=== PATIENT | male | born 1995 | race Hispanic/Latino ===

== ENCOUNTER 2018-03-14 21:37 | Emergency (ER) | payer OTHER ==
[~2018-03-14 21:37] MED LIST: ISOVUE-370 76%-LOCM 1 ML ONE; Iopamidol 370 76% 50 ML VIAL FS ONE
[2018-03-14 21:58] LABS: Bilirubin Small (Negative); Blood, Urine Negative (Negative); Clarity CLOUDY (Clear); Glucose, Urine (Dipstick) Negative (Negative); Leukocyte Negative (Negative); Nitrite Negative (Negative); Protein, Urine (Dipstick) Trace mg/dL (Neg-Trace); Specific Gravity, Urine 1.026 (1.002-1.036)
[2018-03-14 22:18] LABS: #Lymphocytes 1.2 thou/uL (1.20-3.40); #Monocytes 0.7 thou/uL (0.11-0.59); #Neutrophils 11.6 thou/uL (1.40-6.50); %Basophils 0.2 % (0.0-1.0); %Eosinophils 0.1 % (0.0-10.0); %Lymphocytes 8.5 % (28.0-48.0); %Monocytes 5.5 % (0.0-4.0); %Neutrophils 85.7 % (31.0-61.0); Hemoglobin 15.5 g/dL (14.0-18.0); Mean Corpuscular HGB CONC 34.2 g/dL (32.0-36.0); Mean Corpuscular Hemoglobin 31.3 pg (25.0-35.0); Mean Corpuscular Volume 91.3 fL (78.0-98.0); Mean Platelet Volume 7.4 fL (7.4-10.4); Platelet Count 256 thou/uL (130-400); RBC Distribution Width 11.6 % (11.5-14.5); Red Blood Cell (RBC) Count 4.94 mill/uL (4.00-5.20); White Blood Cell (WBC) Count 13.5 thou/uL (4.8-10.8)
[2018-03-14 22:43] LABS: ALT (SGPT) 9 U/L (8-55); AST (SGOT) 15 U/L (5-34); Albumin 4.9 g/dL (3.5-5.0); Alkaline Phosphatase 98 U/L (Less than 750); Anion Gap 14 mmol/L (10-20); BUN (Urea Nitrogen) 15 mg/dL (8.9-20.6); Bilirubin, Total 1.3 mg/dL (0.2-1.2); Calc. Creatinine Clearance 0 mL/min (70-130); Calcium 10.1 mg/dL (7.8-10.44); Carbon Dioxide 27 mmol/L (22-29); Chloride 102 mmol/L (98-107); Estimated GFR-MDRD Greater than 90; Globulin 2.7 g/dL (2.4-3.5); Glucose 116 mg/dL (70-105); Lipase 8 U/L (8-78); Potassium 3.9 mmol/L (3.5-5.1); Protein, Total 7.6 g/dL (6.0-8.3); Sodium 139 mmol/L (136-145)
--- NOTE | 2018-03-15 09:28 | CT ---
PRELIMINARY REPORT/[facility]/EMERGENTY AFTER-HOURS PROCEDURE CT Abdomen and Pelvis With Contrast EXAM DATE/TIME: 03/15/2018 12:20 AM CLINICAL HISTORY: 22 years old, male; Pain; Abdominal pain; Acute; Patient HX: Kedar carr is a 22 yo m with no pmh w ho presents to the ed with C/O 1 day HX of abdominal pain. Pain started this morning, described as sh julio, located in center of abdomen, associated with three episodes of nbnb vomiting. As the day progresses, pain improved slightly and migrated to umbilical area. Describes pain as throb yamile currently. Denies ruq or rlq pain. States he did have chills, but no fever. He was seen at [facility] and giving hyoscyamine. He was afebrile in the clinic. Denies smoking, alcohol, drug use. Denies chest pain, dyspnea, urinary symptoms or testicular pain. TECHNIQUE: Axial computed tomography images of the abdomen and pelvis with intravenous contrast. Coronal reforma tted images were created and reviewed. COMPARISON: No relevant prior studies available. FINDINGS: Lower thorax: No acute findings. ABDOMEN: Liver: No acute findings. No mass. Gallbladder and bile ducts: No calcified stones. No ductal dilation. Pancreas: No acute findings. No mass. No ductal dilation. Spleen: No acute findings. No mass. Adrenals: No acute findings. No mass. Kidneys and ureters: No acute findings. No mass. No hydronephrosis. Stomach and bowel: Fecal loading. Mildly distended bowel loops. No evidence of bowel obstruction. Appendix: Limited evaluation of the appendix due to paucity of intraabdominal fat and distended bowel loops. Therefore appendix is not very discretely visualized from the bowel loops within the right lo wer quadrant, however could be mildly distended possibly seen on coronal image 63 and axial image 71. No periappendiceal inflammation or fluid. PELVIS: Bladder: No acute findings. Reproductive: No acute findings. ABDOMEN and PELVIS: Intraperitoneal space: No free air. No significant fluid collection. Bones/joints: No acute fracture. Soft tissues: No acute findings. Vasculature: No acute findings. No abdominal aortic aneurysm. Lymph nodes: No significant lymphadenopathy. IMPRESSION: Fecal loading. Appendix is not very discretely visualized, however could be mildly distended as descr ibed above; recommend clinical correlation and followup if there is a concern for early appendicitis. Thank you for allowing us to participate in the care of your patient. Dictated and Authenticated by: Michael Denise MD 03/15/2018 1:21 AM Central Time ([place] & [place]) FINAL REPORT CT ABDOMEN AND PELVIS WITH CONTRAST APPENDIX PROTOCOL: Date: 03/14/18 HISTORY: Abdominal pain. COMPARISON: None. FINDINGS/IMPRESSION: Findings and impression are concordant with the preliminary report by Jacob. The appendix is not defin itively visualized, although there are no secondary signs of acute appendicitis. POS: MAT[facility]W
== END 2018-03-15 02:10 | disposition home or self-care (01) ==
LOC: ERS 21:37
DX: R10.10 Upper abdominal pain, unspecified (principal); Z79.899 Other long term (current) drug therapy
CPT/HCPCS: 36415; 74177; 80053; 81003; 83690; 85025; Q9966; Q9967